=== PATIENT | male | born 1975 | race Caucasian/White ===

== ENCOUNTER 2023-11-14 13:50 | Emergency (ER) | payer MEDICAID ==
[~2023-11-14] VITALS: Ht 165.1 cm; Wt 90.0 kg
[2023-11-14 13:59] VITALS: TEMP 98.7; O2SAT 95
[2023-11-14 15:41] LABS: BASOPHILS % 0.3 % (0.0-2.0); EOSINOPHILS % 1.9 % (0.0-5.0); HEMATOCRIT. 41.9 % (42.0-52.0); HEMOGLOBIN. 14.6 g/dL (14.0-18.0); LYMPHOCYTES % 21.7 % (20.0-50.0); MEAN CORPUSCULAR HEMOGLOBIN 30.2 pg (28.0-32.0); MEAN CORPUSCULAR HGB CONC 34.7 g/dL (31.0-37.0); NEUTROPHILS % 68.1 % (40.0-76.0); PLATELET 195 x1000/uL (130-400); RED BLOOD CELL COUNT 4.82 mill/uL (4.7-6.1); RED CELL DISTRIBUTION WIDTH 14.3 % (11.6-14.6); WHITE BLOOD COUNT 6.7 x1000/uL (4.5-11.0)
[2023-11-14 15:50] LABS: CHLORIDE 106 mEq/L (98-107); POTASSIUM 4.1 mEq/L (3.5-5.1); SODIUM 140 mEq/L (136-145)
[2023-11-14 15:51] LABS: CARBON DIOXIDE 26 mEq/L (21-32)
[2023-11-14 15:52] LABS: CALCIUM 10.1 mg/dL (8.7-10.4)
[2023-11-14 15:56] LABS: CREATININE 0.9 mg/dL (0.6-1.3); GLUCOSE 210 mg/dL (70-105)
[2023-11-14 15:57] LABS: UREA NITROGEN BLOOD 9 mg/dL (9-23)
[2023-11-14 15:58] LABS: TROPONIN I HIGH SENSITIVITY < 4 ng/L (3.0-53)
[2023-11-14 16:22] LABS: PARTIAL THROMBOPLASTIN TIME 26.8 sec (23.4-31.0); PROTHROMBIN TIME 10.9 sec (9.6-11.0)
[2023-11-14] MEDS ORDERED: ALBU6.7H15 INH (18:09)
[2023-11-14 18:40] VITALS: BP 131/87; PULSE 72; RESP 17
== END 2023-11-14 18:42 | disposition home or self-care (01) ==
LOC: ER 13:50
DX: R07.89 Other chest pain (principal); E78.00 Pure hypercholesterolemia, unspecified; I10 Essential (primary) hypertension
CPT/HCPCS: 36415; 71045; 80048; 83880; 84484; 85025; 93005; 99285

== ENCOUNTER 2023-11-16 09:55 | Inpatient (IN) | payer SELFPAY ==
[~2023-11-16] VITALS: Ht 167.6 cm; Wt 88.9 kg
[~2023-11-16 09:55] MED LIST: ALBU6.7H15 INH
[2023-11-16 10:10] VITALS: O2SAT 99
[2023-11-16 10:40] LABS: BASOPHILS % 0.6 % (0.0-2.0); EOSINOPHILS % 2.7 % (0.0-5.0); HEMATOCRIT. 43.3 % (42.0-52.0); HEMOGLOBIN. 14.9 g/dL (14.0-18.0); LYMPHOCYTES % 22.8 % (20.0-50.0); MEAN CORPUSCULAR HEMOGLOBIN 30.2 pg (28.0-32.0); MEAN CORPUSCULAR HGB CONC 34.5 g/dL (31.0-37.0); MEAN CORPUSCULAR VOLUME 87.4 fL (80.0-94.0); MEAN PLATELET VOLUME 7.7 fl (7.4-10.4); MONOCYTES % 7.9 % (2.0-8.0); PLATELET 201 x1000/uL (130-400); RED BLOOD CELL COUNT 4.95 mill/uL (4.7-6.1); RED CELL DISTRIBUTION WIDTH 14.7 % (11.6-14.6); WHITE BLOOD COUNT 6.7 x1000/uL (4.5-11.0)
[2023-11-16] MEDS: ASPIRIN 325MG TABLET PO ONE (10:44)
[2023-11-16 10:48] LABS: CHLORIDE 106 mEq/L (98-107); POTASSIUM 4.3 mEq/L (3.5-5.1); SODIUM 141 mEq/L (136-145)
[2023-11-16 10:49] LABS: CALCIUM 9.5 mg/dL (8.7-10.4); CARBON DIOXIDE 28 mEq/L (21-32)
[2023-11-16 10:54] LABS: CREATININE 0.9 mg/dL (0.6-1.3); GLUCOSE 162 mg/dL (70-105); UREA NITROGEN BLOOD 9 mg/dL (9-23)
[2023-11-16 11:34] LABS: TROPONIN I HIGH SENSITIVITY < 4 ng/L (3.0-53)
[2023-11-16 13:07] VITALS: BP 118/73; PULSE 62; RESP 19; TEMP 97.3
[2023-11-16 13:09] VITALS: BP 118/73; PULSE 62; RESP 18; TEMP 97.3
[2023-11-16] MEDS ORDERED: ACETAMINOPHEN 325MG TABLET PO PRN (14:00)
[2023-11-16] MEDS ORDERED: ONDANSETRON HCL 4MG/2ML INJ IV PRN (14:00)
[2023-11-16] MEDS ORDERED: IPRATROPIUM/ALBUTEROL 0.5-3(2.5)MG/3ML NEB NEB PRN (14:00)
[2023-11-16 16:00] VITALS: BP_SYST 122; BP_SYST 125; BP_DIAS 77; BP_DIAS 78; PULSE 68; PULSE 73; RESP 18; RESP 19; TEMP 97.3; TEMP 97.8
[2023-11-16] MEDS: FUROSEMIDE 40MG/4ML VIAL IV SCH (16:24)
[2023-11-16] MEDS: ACETAMINOPHEN 325MG TABLET PO PRN (16:24)
[2023-11-16 16:28] LABS: T4 FREE 1.26 ng/dL (0.89-1.76)
[2023-11-16 16:31] LABS: THYROID STIMULATING HORMONE 0.81 uIU/mL (0.55-4.78)
[2023-11-16] MEDS: ENOXAPARIN 40MG/0.4ML SYR SUBCUT SCH (18:00)
[2023-11-16 20:00] VITALS: BP 118/74; PULSE 68; RESP 18; TEMP 97
[2023-11-16 21:42] LABS: CREATINE KINASE MB FRACTION 0.6 ng/mL (0.5-3.6)
[2023-11-16 21:43] LABS: CREATINE KINASE 71 IU/L (46-171); TROPONIN I HIGH SENSITIVITY < 4 ng/L (3.0-53)
[2023-11-17] VITALS: BP 105/66; PULSE 66; RESP 18; TEMP 97.9
[2023-11-17 03:03] LABS: CREATINE KINASE 60 IU/L (46-171)
[2023-11-17 03:04] LABS: CREATINE KINASE MB FRACTION < 0.5 ng/mL (0.5-3.6)
[2023-11-17 03:52] LABS: TROPONIN I HIGH SENSITIVITY < 4 ng/L (3.0-53)
[2023-11-17 04:00] VITALS: BP 118/69; PULSE 69; RESP 20; TEMP 98.4
[2023-11-17 06:59] LABS: BASOPHILS % 0.5 % (0.0-2.0); EOSINOPHILS % 3.8 % (0.0-5.0); HEMATOCRIT. 44.4 % (42.0-52.0); HEMOGLOBIN. 15.3 g/dL (14.0-18.0); LYMPHOCYTES % 26.2 % (20.0-50.0); MEAN CORPUSCULAR HEMOGLOBIN 30.4 pg (28.0-32.0); MEAN CORPUSCULAR HGB CONC 34.5 g/dL (31.0-37.0); MEAN PLATELET VOLUME 7.8 fl (7.4-10.4); MONOCYTES % 8.8 % (2.0-8.0); NEUTROPHILS % 60.7 % (40.0-76.0); PLATELET 197 x1000/uL (130-400); RED BLOOD CELL COUNT 5.04 mill/uL (4.7-6.1); RED CELL DISTRIBUTION WIDTH 14.8 % (11.6-14.6); WHITE BLOOD COUNT 8.7 x1000/uL (4.5-11.0)
[2023-11-17 07:04] LABS: CHLORIDE 106 mEq/L (98-107); SODIUM 139 mEq/L (136-145)
[2023-11-17 07:05] LABS: CALCIUM 9.2 mg/dL (8.7-10.4); CARBON DIOXIDE 25 mEq/L (21-32)
[2023-11-17 07:07] LABS: CREATINE KINASE MB FRACTION < 0.5 ng/mL (0.5-3.6)
[2023-11-17 07:10] LABS: CREATINE KINASE 58 IU/L (46-171); CREATININE 0.9 mg/dL (0.6-1.3); GLUCOSE 141 mg/dL (70-105); TRIGLYCERIDE 153 mg/dL (0-150); UREA NITROGEN BLOOD 11 mg/dL (9-23)
[2023-11-17 07:11] LABS: LDL CHOLESTEROL 69 mg/dL (5-100)
[2023-11-17 07:12] LABS: CHOLESTEROL 112 mg/dL (<200); HDL CHOLESTEROL 30 mg/dL (>55); PHOSPHORUS 4.4 mg/dL (2.5-4.9)
[2023-11-17 07:40] LABS: TROPONIN I HIGH SENSITIVITY < 4 ng/L (3.0-53)
[2023-11-17 08:00] VITALS: BP 105/70; PULSE 62; RESP 15; TEMP 97.8
[2023-11-17] MEDS: MAGNESIUM/ALUMINUM HYDROXIDE/SIMETHICONE 30ML UDC PO PRN (09:35)
[2023-11-17 12:00] VITALS: BP 152/99; PULSE 114; RESP 19; TEMP 98.7
[2023-11-17 16:00] VITALS: BP 143/93; PULSE 103; RESP 18; TEMP 98.9
[2023-11-17 20:00] VITALS: BP 174/94; PULSE 103; RESP 18; TEMP 97.9
[2023-11-17] MEDS: CLONIDINE 0.1MG TABLET PO PRN (22:24)
[2023-11-18] VITALS: BP 128/89; PULSE 81; RESP 19; TEMP 98.2
[2023-11-18 04:00] VITALS: BP 125/83; PULSE 82; RESP 20; TEMP 98
== END 2023-11-18 05:34 | disposition left against medical advice (07) | DRG 203 ==
LOC: ER 09:55 → 7EST 11:24 → EDBEDREQTM 11:25 → EDBEDREQ 11:25
PROVIDERS: ADMIT Internal Medicine; ATTEND Internal Medicine
DX: R07.89 Other chest pain (principal); E78.00 Pure hypercholesterolemia, unspecified; I10 Essential (primary) hypertension; R60.0 Localized edema; Z72.0 Tobacco use; Z53.21 Procedure and treatment not carried out due to patient leaving prior to being seen by health care provider
CPT/HCPCS: 36415; 71045; 80048; 80061; 82550; 82553; 82962; 83036; 83735; 83880; 84100; 84439; 84443; 84484; 85025; 86705; 93005; 99285; J1650; J1940